=== PATIENT | female | born 1950 | race Hispanic/Latino ===

== ENCOUNTER 2018-01-04 17:02 | Observation (INO) | payer MEDICARE ==
[~2018-01-04] VITALS: Ht 157.5 cm; Wt 83.0 kg
[~2018-01-04 17:02] MED LIST: LOSARTAN POTAS100 MG PO; NEXIUM40 MG PO; NITROFURANTOIN100 MG PO
[2018-01-04 18:00] VITALS: BP 122/62
[2018-01-04] MEDS ORDERED: HYDROCHLOROTH12.5 M1 PO (18:10)
[2018-01-04] MEDS ORDERED: VITAMIN D400 UNIT PO (18:10)
[2018-01-04] MEDS ORDERED: ASPIR 8181 MG PO (18:10)
[2018-01-04] MEDS ORDERED: ACIDOPHILUS1 EAC1 PO (18:10)
[2018-01-04] MEDS ORDERED: MULTI-VITAMIN1 EACH PO (18:10)
[2018-01-04] MEDS ORDERED: NITROGLYCERIN 0.4 MG SUBL SL PRN (18:15)
[2018-01-04] MEDS ORDERED: ACETAMINOPHEN 325 MG TAB PO PRN (18:15)
[2018-01-04] MEDS: ASPIRIN 81 MG ENTERIC COATED PO SCH (18:48)
--- NOTE | 2018-01-04 19:30 | Diagnostic Imaging Report ---
Examination: Single AP view of the chest. COMPARISON: None. INDICATION: Chest pain DISCUSSION: Lines/tubes: None. Lungs: The lungs are well inflated and clear. No pneumonia or pulmonary edema. Pleura: No pleural effusion or pneumothorax. Heart and mediastinum: The heart and the mediastinum are unremarkable. Bones and soft tissues: No acute bony abnormalities. IMPRESSION: 1. No acute cardiopulmonary abnormalities. Signed by: Dr. Irving Monzon M.D. on 01/04/2018 7:26 PM
[2018-01-04 20:00] VITALS: BP_SYST 102; BP_SYST 125; BP_DIAS 44; BP_DIAS 68
[2018-01-04 20:10] LABS: CHOL/HDL RATIO 3.1 (3.0-3.6); CHOLESTEROL 170 MD/DL (0-199); CREATINE KINASE 271 IU/L (29-168); HDL CHOLESTEROL 55 MG/DL (40-60); LDL CHOLESTEROL 88 MG/DL (60-130); TRIGLYCERIDES 134 MG/DL (0-149)
[2018-01-04] MEDS ORDERED: ATORVASTATIN 20 MG TAB PO SCH ×2 (21:00)
[2018-01-05] VITALS: BP 102/44
[2018-01-05] MEDS ORDERED: KETOROLAC TROMETHAMINE 30 MG/ML VIAL IV PRN (01:00)
[2018-01-05 01:41] LABS: CREATINE KINASE 240 IU/L (29-168)
[2018-01-05 04:00] VITALS: BP 120/73
[2018-01-05] MEDS ORDERED: PANTOPRAZOLE SOD 40 MG TABEC PO SCH (07:30)
[2018-01-05 07:44] VITALS: BP 121/63
[2018-01-05] MEDS ORDERED: ASPIRIN 81 MG CHEW TAB PO SCH (09:00)
[2018-01-05] MEDS ORDERED: CHOLECALCIFEROL 400 UNIT TAB PO SCH (09:00)
[2018-01-05] MEDS ORDERED: LOSARTAN POTASSIUM 100 MG TAB PO SCH (09:00)
[2018-01-05] MEDS ORDERED: NON-FORMULARY MEDICATION (Cholecalciferol (Vitamin D3) (Vitamin D) 400 UNITS) PO SCH (09:00)
[2018-01-05] MEDS ORDERED: HYDROCHLOROTHIAZIDE 25 MG TAB PO SCH (09:00)
[2018-01-05] MEDS ORDERED: LACTOBACILLUS ACIDOPHILUS CAPSULE PO SCH (09:00)
[2018-01-05] MEDS ORDERED: MULTIVITAMINS/MINERALS TAB PO SCH (09:00)
[2018-01-05] MEDS: ASPIRIN 81 MG ENTERIC COATED PO SCH (09:04)
[2018-01-05 09:15] LABS: CREATINE KINASE 207 IU/L (29-168)
[2018-01-05 11:23] VITALS: BP 101/54
[2018-01-05 11:40] VITALS: BP 121/63
--- NOTE | 2018-01-05 13:44 | Cardiology Report ---
DATE OF STUDY: January 05, 2018 TITLE OF THIS TEST: Cardiac stress test TECHNICAL DETAILS: The protocol is Tom with target heart rate at 131 per minute. RESULTS 1. Patient exercised for a total of 5 minutes and 7 seconds. 2. Heart rate increased from 65 per minute to 137 per minute. 3. Blood pressure increased from 110/72 to 160/63. 4. No chest pain. 5. No EKG changes. IMPRESSION: Negative cardiac stress test with good exercise tolerance. Limitations of negative cardiac stress test are discussed and explained. Job#: [id number] VAS
--- NOTE | 2018-01-05 13:58 | Consultation ---
DATE OF CONSULTATION: January 05, 2018 CARDIAC CONSULTATION REASON FOR CONSULTATION: Chest pain. HISTORY: A delightful 67-year-old lady with known hypertension and hypercholesterolemia, very active. Before yesterday, she was cleaning her kitchen and she scrubbed it hardly. She started having left shoulder and left upper chest pain. She went to see Dr. Cai, admitted because of her chest pain for further management. Cardiac consultation is obtained. Patient denied having any prior angina. The pain was very severe and that is why she is seeking help. Her cardiac enzymes came back normal. Patient claimed to be active without any cardiac symptoms with the exception of easy fatigability and shortness of breath on exertion. There is no orthopnea. There is no paroxysmal nocturnal dyspnea. There is no syncope or presyncope. REVIEW OF SYSTEMS CARDIAC: As per above. PULMONARY: No cough. No hemoptysis. GI: No hematemesis, no melena. : No hematuria, no dysuria, although patient does have stress incontinence. NEUROMUSCULAR: No aches. No pain. GENERAL: No fever. No chills. HEMATOLOGY: No easy bruising or bleeding. SOCIAL HISTORY: She is . She is nonsmoker, no alcohol drinker. HOME MEDICATIONS: Include aspirin 81 mg a day, losartan hydrochlorothiazide 100/12.5 one tablet a day, atorvastatin 20 mg per day, Protonix 40 mg a day. ALLERGIES: PENICILLIN CAUSING LARYNGEAL EDEMA. PAST MEDICAL HISTORY 1. Hypertension. 2. Hypercholesterolemia. 3. Hysterectomy in 1981. 4. GERD. 5. Cholecystectomy. 6. Diverticulosis. 7. Right and left knee replacement in 2013. FAMILY HISTORY: Father of cancer at age 62. Mother of myocardial infarction at age 76. Three brothers and 3 sisters, 1 sister with heart murmur. She lost a brother to a car accident. No sons and 3 healthy daughters. PHYSICAL EXAM VITAL SIGNS: Height of 5 feet 2 inches, weight of 183 pounds, blood pressure 120/60, heart rate of 60, respiratory rate of 18. HEENT: Pupils are equal, reactive. NECK: No elevation of jugular venous pulsation. No bruit. CHEST: Clear to auscultation and percussion. HEART: PMI 5th left intercostal space. Normal 1st and 2nd heart sounds. ABDOMEN: Soft with good bowel sounds. EXTREMITIES: No cyanosis, no clubbing, no edema. NEUROLOGIC: Nonfocal. LABORATORY DATA: Lipid profile showed triglycerides of 134, total cholesterol of 170, HDL of 55, LDL of 88. CKs are normal. EKG showing normal sinus rhythm. EKG is no acute changes. IMPRESSION 1. Chest pain. 2. Hypertension. 3. Hyperlipidemia. 4. Dyspnea on exertion. 5. Gastroesophageal reflux disease. 6. Stress incontinence. PLAN: Patient had already cardiac enzymes, are negative. So, we will schedule her for stress test. We will review her echocardiogram ordered by Dr. Cai. Pending on the results of this test, further steps to be done. Job#: [id number] ANGEL
[2018-01-05 15:33] VITALS: BP 108/56
--- NOTE | 2018-01-05 18:12 | Discharge Summary ---
A 67-year-old female with a past medical history positive for hypertension, vitamin D deficiency came here transferred from my office because of atypical chest pain. She has had an adenosine Cardiolite stress test that came back negative for ischemia. The patient is going home today. PHYSICAL EXAMINATION HEART: Shows regular rhythm. Normal S1and S2 sounds. LUNGS: Clear bilaterally. ABDOMEN: Soft. EXTREMITIES: Show no evidence of cyanosis or trauma. FINAL IMPRESSION 1. Episode of chest pain. 2. Hypertension. 3. Vitamin D deficiency. She is going to be discharged on: 1. Aspirin 81 mg daily. 2. Lipitor 20 mg daily. 3. Losartan 100 mg daily. 4. Protonix 40 mg daily. 5. Multivitamin 1 tablet daily. 6. Cholecalciferol 400 units daily. Follow up in a week. MIGUEL MONTES MD Job#: [id number] TN
--- NOTE | 2018-01-05 18:17 | History and Physical ---
HISTORY OF PRESENT ILLNESS: Patient is a 67-year-old female, who has past medical history positive for hypertension. Came to the clinic complaining of chest pain. EKG was unremarkable. He had adenosine Cardiolite done by Dr. Sherman, which came back negative. She is going home today. REVIEW OF SYSTEMS CARDIOVASCULAR: She did have chest pain. No palpitations. RESPIRATORY: No shortness of breath. No cough. GASTROINTESTINAL: No nausea, vomiting, diarrhea. GENITOURINARY: No frequency, dysuria. ALLERGIES: SHE IS ALLERGIC TO PENICILLIN. PAST MEDICAL HISTORY: Mainly positive for hypertension. SOCIAL HISTORY: He does not smoke. He does not drink. PHYSICAL EXAM: VITAL SIGNS: Blood pressure 108/56, temperature 97.4, heart rate 71 per minute, respiratory rate 18 per minute, oxygen saturation 100%. FINAL IMPRESSIONS 1. Episode of chest pain. 2. Hypertension. 3. Vitamin D deficiency. 4. Patient had adenosine Cardiolite stress test negative. She is going home today. Job#: [id number] CQ
== END 2018-01-05 18:46 | disposition home or self-care (01) ==
LOC: MED/SURG3 17:02
PROVIDERS: ADMIT Internal Medicine; ATTEND Internal Medicine
DX: R07.89 Other chest pain (principal); I10 Essential (primary) hypertension; E55.9 Vitamin D deficiency, unspecified; Z88.0 Allergy status to penicillin; E78.00 Pure hypercholesterolemia, unspecified; E78.5 Hyperlipidemia, unspecified; K21.9 Gastro-esophageal reflux disease without esophagitis; N39.3 Stress incontinence (female) (male)
CPT/HCPCS: 36415 ×2; 71045; 80061; 82550 ×2; 82553 ×2; 84484 ×2; 93005; 93017; 93306; G0378 ×2

== ENCOUNTER → 2018-02-16 | Outpatient (CLI) | payer MEDICARE ==
[~2018-02-16] MED LIST changes: +ACIDOPHILUS1 EAC1 PO; +ASPIR 8181 MG PO; +HYDROCHLOROTH12.5 M1 PO; +MULTI-VITAMIN1 EACH PO; +VITAMIN D400 UNIT PO
--- NOTE | 2018-02-16 11:48 | Diagnostic Imaging Report ---
EXAM: BONE MINERAL DENSITY HISTORY: Bone mineralization evaluation COMPARISON: None DISCUSSION: Evaluation of the left hip and lumbar spine was performed utilizing DEXA Hologic bone densitometer. The study is technically adequate. Left hip femoral neck bone mineral density: 0.71 g/cm2, T-score is -1.4, Z-score is 0.1. Left hip total bone mineral density: 0.88 g/cm2, T-score is -0.6, Z-score is 0.6. Lumbar spine total bone mineral density: 1.08 gm/cm2, T-score is 0.3, Z-score is 2.1. 10 year fracture risk major osteoporotic fracture 4.5% and hip fracture 0.4%. Impression: Bone mineralization by WHO Classification is low bone mass/osteopenia, the fracture risk is increased. Signed by: Dr. Irving Monzon M.D. on 02/16/2018 11:45 AM
== END ==
LOC: DX 10:22
PROVIDERS: ATTEND Internal Medicine
DX: M89.9 Disorder of bone, unspecified (principal)
CPT/HCPCS: 77080

== ENCOUNTER → 2018-09-08 | Day surgery (SDC) | payer MEDICARE ==
[2018-08-30 15:49] LABS: BASOPHILS % 0.1 % (0.0-1.0); EOSINOPHILS # (AUTO) 0.1 (0.0-0.4); EOSINOPHILS % 1.7 % (0.0-6.0); HEMATOCRIT 36.3 % (34.2-44.1); HEMOGLOBIN 12.3 g/dL (12.0-16.0); LYMPHOCYTES # (AUTO) 2.2 (1.0-3.2); LYMPHOCYTES % 31.5 % (18.0-39.1); MEAN CORPUSCULAR HEMOGLOBIN 29.3 pg (28-32); MEAN CORPUSCULAR HGB CONC 33.9 g/dL (31-35); MEAN CORPUSCULAR VOLUME 86.4 fL (81-99); MONOCYTES # (AUTO) 0.5 (0.2-0.8); MONOCYTES % 7.7 % (4.4-11.3); NEUTROPHILS % 58.7 % (38.7-80.0); PLATELET COUNT 290 x10e3/uL (140-360); RED CELL DISTRIBUTION WIDTH 13.8 % (11.7-14.4)
[~2018-09-08] MED LIST changes: +FENTANYL CITRATE/PF 100MCG/2 ML INJ ONE; +HYOSCYAMINE SULFATE 0.5 MG/ML INJ ONE; +MICARDIS HCT 41 EACH PO; +MIDAZOLAM HCL 2 MG/2 ML VIAL ONE; +PROPOFOL IV EMULSION 10 MG/ML 50 ML VIAL ONE
--- OUTSIDE RECORDS SUMMARY | 2018-09-08 05:44 | XMS REPORT ---
[facility] Address Unknown Phone Unavailable Care Team Providers Care Activities Leader Name Role Phone MIGUEL MONTES Unavailable Unavailable Payers Payer Name Policy Type Policy Number Effective Date Expiration Date Problems This patient has no known problems. Allergies, Adverse Reactions, Alerts Allergy Name Allergy Type Status Severity Reaction(s) Onset Date Inactive Date Treating Clinician Comments Penicillins DA Active SV 2015-02-12 00:00:00 Medications This patient has no known medications. Results Test Description Test Time Test Comments Text Results Atomic Results Result Comments BONE DXA DUAL ENERGY 2018-02-16 11:43:00 [place] [address] Patient Name: NORMA CAMILO MR #: [id number] : 1950 Age/Sex: 67/F Req #: [id number] Adm Physician: Ordered by: MIGUEL MONTES MD Report #: [id number] Location: DX Room/Bed: Procedure: [id number] DX/BONE DXA DUAL ENERGY Exam Date: Exam Time: REPORT STATUS: Signed EXAM: BONE MINERAL DENSITY HISTORY: Bone mineralization evaluation COMPARISON: None DISCUSSION: Evaluation of the left hip and lumbar spine was performed utilizing DEXA Hologic bone densitometer. The study is technically adequate. Left hip femoral neck bone mineral density: 0.71 g/cm2, T-score is -1.4, Z-score is 0.1. Left hip total bone mineral density: 0.88 g/cm2, T-score is -0.6, Z-score is 0.6. Lumbar spine total bone mineral density: 1.08 gm/cm2, T-score is 0.3, Z-score is 2.1. 10 year fracture risk major osteoporotic fracture 4.5% and hip fracture 0.4%. Impression: Bone mineralization by WHO Classification is low bone mass/osteopenia, the fracture risk is increased. Signed by: Dr. George Knox M.D. on 02/16/2018 11:45 AM Dictated By: GEORGE KNOX MD 1145 Transcribed By: MADELINE on 02/16/18 1145 COPY TO: MIGUEL MONTES MD Stress Test - Treadmill ONLY 2018-01-05 12:15:00 [place] [address] Patient Name : NORMA CAMILO MR #: [id number] : 1950 Age/Sex: 67/F Adm Physician : MIGUEL MONTES MD Admit Date : 01/04/18 Location : [facility] Room/Bed : [facility] REPORT: Cardiology Report DATE OF STUDY: January 05, 2018 TITLE OF THIS TEST: Cardiac stress test TECHNICAL DETAILS: The protocol is Tom with target heart rate at 131 per minute. RESULTS 1. Patient exercised for a total of 5 minutes and 7 seconds. 2. Heart rate increased from 65 per minute to 137 per minute. 3. Blood pressure increased from 110/72 to 160/63. 4. No chest pain. 5. No EKG changes. IMPRESSION: Negative cardiac stress test with good exercise tolerance. Limitations of negative cardiac stress test are discussed and explained. Job#: [id number] VAS Signature Date Dictated By: ABEL BENTLEY MD Transcribed By: EDS on 01/05/18 <Electronically signed by ABEL BENTLEY MD><<Signature on File>>01/08/18 1221 COPY TO: CHEST SINGLE (PORTABLE) 2018-01-04 19:26:00 [place] [address] Patient Name: NORMA CAMILO MR #: [id number] : 1950 Age/Sex: 67/F Req #: [id number] Adm Physician: MIGUEL MONTES MD Ordered by: MIGUEL MONTES MD Report #: [id number] Location: [facility] Room/Bed: [facility] Procedure: [id number] DX/CHEST SINGLE (PORTABLE) Exam Date: 01/04/18 Exam Time: 1909 REPORT STATUS: Signed Examination: Single AP view of the chest. COMPARISON: None. INDICATION: Chest pain DISCUSSION: Lines/tubes: None. Lungs: The lungs are well inflated and clear. No pneumonia or pulmonary edema. Pleura: No pleural effusion or pneumothorax. Heart and mediastinum: The heart and the mediastinum are unremarkable. Bones and soft tissues: No acute bony abnormalities. IMPRESSION: 1. No acute cardiopulmonary abnormalities. Signed by: Dr. George Knox M.D. on 01/04/2018 7:26 PM Dictated By: GEORGE KNOX MD 25 Transcribed By: MADELINE on 01/04/181925 COPY TO: MIGUEL MONTES MD
[2018-09-08 10:05] VITALS: BP 98/60
--- NOTE | 2018-09-08 11:26 | Operative Report ---
DATE OF PROCEDURE: 09/08/2018 SURGEON: Wander Kramer MD PROCEDURE: Colonoscopy and polypectomy. INDICATIONS FOR COLONOSCOPY: Surveillance colonoscopy, personal history of colon polyps. MEDICATIONS: The patient was done under MAC, please see anesthesiologist's note. PROCEDURE IN DETAIL: With the patient in left lateral decubitus position, flexible fiberoptic Olympus colonoscope was inserted into the rectum with ease and advanced all the way to the cecum. Mucosa overlying the cecum appeared to be within normal limits. One polyp was removed per cold biopsy forceps from the ascending colon. The transverse and descending appeared to be within normal limits. Diverticular disease was noted in the distal descending and the sigmoid, one polyp was snared from the sigmoid colon. The rectum appeared to be within normal limits. The scope was then retroflexed into the distal rectum where small internal hemorrhoids were noted, none of which was actively bleeding. The scope was then straightened out, it was subsequently withdrawn. The patient tolerated procedure well. IMPRESSION: 1. Ascending colon polyp, removed per cold biopsy forceps. 2. Diverticulosis. 3. Sigmoid colon polyp, removed per snare electrocautery. 4. Internal hemorrhoids, none actively bleeding. PLAN: Follow up histology. Initiate high-fiber, low-fat diet. Initiate high-fiber supplement. The patient might benefit from a followup colonoscopy in 5 years. Wander Kramer MD [facility] [place] /[id number] cc: Juan Cai MD
== END | disposition home or self-care (01) ==
LOC: OR 05:42
PROVIDERS: ATTEND Internal Medicine Gastroenterology
DX: Z09 Encounter for follow-up examination after completed treatment for conditions other than malignant neoplasm (principal); K63.5 Polyp of colon; K57.30 Diverticulosis of large intestine without perforation or abscess without bleeding; K64.8 Other hemorrhoids; K21.0 Gastro-esophageal reflux disease with esophagitis; I10 Essential (primary) hypertension; M13.852 Other specified arthritis, left hip; Z88.0 Allergy status to penicillin; Z01.810 Encounter for preprocedural cardiovascular examination; Z01.812 Encounter for preprocedural laboratory examination; Z79.82 Long term (current) use of aspirin; Z68.31 Body mass index [BMI] 31.0-31.9, adult; Z85.42 Personal history of malignant neoplasm of other parts of uterus; Z92.21 Personal history of antineoplastic chemotherapy
CPT/HCPCS: 36415; 45380; 45385; 85025; 88305; 93005; J1980; J2250; J2704; 45378; 45384

== ENCOUNTER → 2020-01-09 | Day surgery (SDC) | payer OTHER ==
[2020-01-04 11:54] LABS: BASOPHILS % 0.2 % (0.0-1.0); EOSINOPHILS # (AUTO) 0.1 (0.0-0.4); EOSINOPHILS % 1.6 % (0.0-6.0); HEMATOCRIT 36.7 % (34.2-44.1); HEMOGLOBIN 12.3 g/dL (12.0-16.0); LYMPHOCYTES # (AUTO) 2.1 (1.0-3.2); LYMPHOCYTES % 33.6 % (18.0-39.1); MEAN CORPUSCULAR HEMOGLOBIN 29.6 pg (28-32); MEAN CORPUSCULAR HGB CONC 33.5 g/dL (31-35); MEAN CORPUSCULAR VOLUME 88.4 fL (81-99); MONOCYTES # (AUTO) 0.5 (0.2-0.8); MONOCYTES % 8.2 % (4.4-11.3); NEUTROPHILS # (AUTO) 3.4 (2.1-6.9); NEUTROPHILS % 55.9 % (38.7-80.0); PLATELET COUNT 259 x10e3/uL (140-360); RED BLOOD COUNT 4.15 x10e6/uL (3.6-5.1); RED CELL DISTRIBUTION WIDTH 13.2 % (11.7-14.4)
[~2020-01-09] MED LIST changes: -HYOSCYAMINE SULFATE 0.5 MG/ML INJ ONE; +PANTOPRAZOLE 40 MG 10ML VIAL ONE; +PEPCID20 MG PO; +PROPOFOL IV EMULSION 10 MG/ML 20 ML VIAL ONE; -PROPOFOL IV EMULSION 10 MG/ML 50 ML VIAL ONE
[2020-01-09 13:00] VITALS: BP 107/57
--- NOTE | 2020-01-09 14:29 | Operative Report ---
DATE OF PROCEDURE: 01/09/2020 SURGEON: Wander Kramer MD PROCEDURE: EGD with biopsies. INDICATIONS FOR EGD: Acid reflux, heartburn, bloating. MEDICATIONS: The patient was done under MAC, please see anesthesiologist's note. PROCEDURE IN DETAIL: With the patient in left lateral decubitus position, a flexible fiberoptic Olympus gastroscope was introduced into the esophagus under direct visualization without any difficulty. There was some patchy erythema noted in distal esophagus. The scope was then advanced with ease into the stomach, traversing a small sliding hiatal hernia. Mucosa overlying the antrum and the body revealed some patchy erythema and [id number] edema; biopsies were obtained, sent to stain for H. pylori. Some prominent patchy nodularity was noted in the midbody of the stomach as well as in the fundus, some biopsies were obtained. Pylorus was of normal contour and shape, it was intubated with ease and the scope was advanced all the way to the second portion of the duodenum. Biopsies were obtained from the proximal second portion and the duodenal bulb to rule out sprue. The scope was then withdrawn back into the stomach and retroflexed, and mucosa overlying the fundus and cardia appeared to be within normal limits. The scope was then straightened out, it was subsequently withdrawn. The patient tolerated the procedure well. IMPRESSION: 1. Distal esophagitis, mild. 2. Small sliding hiatal hernia. 3. Gastritis, biopsied, biopsies sent to stain for H. pylori. 4. Patchy nodularity in midbody of the fundus, biopsied. 5. Rule out sprue. PLAN: 1. Follow up histology. 2. Continue Nexium 40 mg one p.o. a.c. b.i.d., Pepcid 40 mg one p.o. at bedtime. Wander Kramer MD [facility] [place][id number] cc: Juan Cai MD
== END | disposition home or self-care (01) ==
LOC: OR 10:03
PROVIDERS: ATTEND Internal Medicine Gastroenterology
DX: K29.50 Unspecified chronic gastritis without bleeding (principal); K31.7 Polyp of stomach and duodenum; K31.89 Other diseases of stomach and duodenum; K21.9 Gastro-esophageal reflux disease without esophagitis; K44.9 Diaphragmatic hernia without obstruction or gangrene; K20.90 Esophagitis, unspecified without bleeding; Z86.010 Personal history of colon polyps; I10 Essential (primary) hypertension; E78.5 Hyperlipidemia, unspecified; I49.3 Ventricular premature depolarization; Z88.0 Allergy status to penicillin; Z01.810 Encounter for preprocedural cardiovascular examination; Z01.812 Encounter for preprocedural laboratory examination; Z11.59 Encounter for screening for other viral diseases; Z79.82 Long term (current) use of aspirin; Z85.42 Personal history of malignant neoplasm of other parts of uterus; Z68.32 Body mass index [BMI] 32.0-32.9, adult; Z92.3 Personal history of irradiation
CPT/HCPCS: 36415; 43239; 85025; 93005; C9113; J2250; J2704; J3010; U0002

== ENCOUNTER 2020-06-12 14:25 | Emergency (ER) | payer MEDICARE ==
[~2020-06-12] VITALS: Ht 157.5 cm; Wt 83.0 kg
[~2020-06-12 14:25] MED LIST changes: -FENTANYL CITRATE/PF 100MCG/2 ML INJ ONE; -MIDAZOLAM HCL 2 MG/2 ML VIAL ONE; -PANTOPRAZOLE 40 MG 10ML VIAL ONE; -PROPOFOL IV EMULSION 10 MG/ML 20 ML VIAL ONE
[2020-06-12 16:35] LABS: BASOPHILS % 0.2 % (0.0-1.0); EOSINOPHILS # (AUTO) 0.1 (0.0-0.4); EOSINOPHILS % 1.9 % (0.0-6.0); HEMATOCRIT 36.5 % (34.2-44.1); LYMPHOCYTES # (AUTO) 1.9 (1.0-3.2); LYMPHOCYTES % 32.5 % (18.0-39.1); MEAN CORPUSCULAR HEMOGLOBIN 28.8 pg (28-32); MEAN CORPUSCULAR HGB CONC 32.9 g/dL (31-35); MEAN CORPUSCULAR VOLUME 87.5 fL (81-99); MONOCYTES # (AUTO) 0.7 (0.2-0.8); MONOCYTES % 11.2 % (4.4-11.3); NEUTROPHILS # (AUTO) 3.2 (2.1-6.9); NEUTROPHILS % 53.9 % (38.7-80.0); PLATELET COUNT 275 x10e3/uL (140-360); RED BLOOD COUNT 4.17 x10e6/uL (3.6-5.1); RED CELL DISTRIBUTION WIDTH 13.5 % (11.7-14.4)
[2020-06-12 16:46] LABS: INR 0.89; PROTHROMBIN TIME 12.6 seconds (11.9-14.5)
[2020-06-12 16:47] LABS: PARTIAL THROMBOPLASTIN TIME 36.2 seconds (23.8-35.5)
[2020-06-12 16:52] LABS: ALANINE AMINOTRANSFERASE 23 IU/L (0-55); ALBUMIN 4.2 g/dL (3.5-5.0); ALBUMIN/GLOBULIN RATIO 1.4 (0.8-2.0); ALKALINE PHOSPHATASE 93 IU/L (40-150); ANION GAP 11.9 mmol/L (8-16); BLOOD UREA NITROGEN 14 mg/dL (7-26); BUN/CREATININE RATIO 20 (6-25); CALCIUM 8.8 mg/dL (8.4-10.2); CARBON DIOXIDE 29 mmol/L (22-29); CHLORIDE 102 mmol/L (98-107); CREATININE, SERUM 0.69 mg/dL (0.57-1.11); EST GLOMERULAR FILTRATION RATE > 60 ML/MIN (60-); GLUCOSE 94 mg/dL (74-118); POTASSIUM 3.9 mmol/L (3.5-5.1); SODIUM 139 mmol/L (136-145)
== END 2020-06-12 19:10 | disposition other institution (70) ==
LOC: ER 14:52
DX: S06.5X0A Traumatic subdural hemorrhage without loss of consciousness, initial encounter (principal); S01.01XA Laceration without foreign body of scalp, initial encounter; W01.198A Fall on same level from slipping, tripping and stumbling with subsequent striking against other object, initial encounter; Y93.01 Activity, walking, marching and hiking; Y92.008 Other place in unspecified non-institutional (private) residence as the place of occurrence of the external cause; Z20.822 Contact with and (suspected) exposure to COVID-19
CPT/HCPCS: 12001; 36415; 70450; 72125; 80053; 85025; 85610; 85730; 99284; U0002

== ENCOUNTER 2020-10-27 20:10 | Emergency (ER) | payer MEDICARE ==
[~2020-10-27] VITALS: Ht 157.5 cm; Wt 74.8 kg
[2020-10-27 20:33] LABS: BASOPHILS % 0.3 % (0.0-1.0); EOSINOPHILS # (AUTO) 0.1 (0.0-0.4); EOSINOPHILS % 1.4 % (0.0-6.0); HEMOGLOBIN 12.8 g/dL (12.0-16.0); LYMPHOCYTES # (AUTO) 2.6 (1.0-3.2); LYMPHOCYTES % 42.3 % (18.0-39.1); MEAN CORPUSCULAR HGB CONC 32.8 g/dL (31-35); MEAN CORPUSCULAR VOLUME 88.2 fL (81-99); MONOCYTES # (AUTO) 0.5 (0.2-0.8); MONOCYTES % 7.2 % (4.4-11.3); NEUTROPHILS % 48.5 % (38.7-80.0); PLATELET COUNT 276 x10e3/uL (140-360); RED BLOOD COUNT 4.42 x10e6/uL (3.6-5.1); RED CELL DISTRIBUTION WIDTH 13.7 % (11.7-14.4)
[2020-10-27 21:07] LABS: INR 0.87; PARTIAL THROMBOPLASTIN TIME 35.2 seconds (23.8-35.5)
[2020-10-27 21:16] LABS: ALBUMIN 4.2 g/dL (3.5-5.0); ALBUMIN/GLOBULIN RATIO 1.4 (0.8-2.0); ANION GAP 14.5 mmol/L (8-16); CALCIUM 8.9 mg/dL (8.4-10.2); CREATININE, SERUM 0.82 mg/dL (0.57-1.11); POTASSIUM 3.5 mmol/L (3.5-5.1)
[2020-10-27] MEDS ORDERED: IOPAMIDOL 370 MG/ML 200 ML INFUS..BTL INJ ONE (21:43)
[2020-10-27] MEDS ORDERED: SODIUM CHLORIDE 0.9% 50ML 50 ML ONE (21:44)
[2020-10-27 23:13] VITALS: BP 112/56
== END 2020-10-27 23:10 | disposition home or self-care (01) ==
LOC: ER 20:16
DX: R04.2 Hemoptysis (principal); I10 Essential (primary) hypertension; K21.9 Gastro-esophageal reflux disease without esophagitis
CPT/HCPCS: 36415; 70491; 71260; 80053; 85025; 85610; 85730; 99283; Q9967

== ENCOUNTER → 2020-11-12 | Outpatient (CLI) | payer MEDICARE | LOC: US 14:37 | PROVIDERS: ATTEND Internal Medicine | DX: I71.4 Abdominal aortic aneurysm, without rupture (principal); E04.1 Nontoxic single thyroid nodule | CPT/HCPCS: 76536; 76700 ==

== ENCOUNTER 2024-06-30 04:23 | Inpatient (IN) | payer MEDICARE ==
[2024-06-30] VITALS (7 sets, daily range): BP systolic 103–118; BP diastolic 47–73; PULSE 68–85; RESP 14–18; TEMP 97.5–99.4; O2SAT 97–100
[~2024-06-30] VITALS: Ht 157.5 cm; Wt 77.1 kg
[2024-06-30] MEDS: ONDANSETRON HCL INJ 2MG/ML 2ML 2 MG/ML VIAL IV STA (04:49)
[2024-06-30] MEDS: SODIUM CHLORIDE 0.9% 1000ML 1,000 ML IV STA (04:49)
[2024-06-30] MEDS: Morphine 4mg INJECTION 4 MG/ML INJ IV STA (04:50)
[2024-06-30 04:55] LABS: BASOPHILS % 0.2 % (0.0-1.0); EOSINOPHILS # (AUTO) 0.2 (0.0-0.4); EOSINOPHILS % 1.7 % (0.0-6.0); HEMATOCRIT 37.3 % (34.2-44.1); HEMOGLOBIN 12.8 g/dL (12.0-16.0); LYMPHOCYTES # (AUTO) 2.3 (1.0-3.2); LYMPHOCYTES % 20.8 % (18.0-39.1); MEAN CORPUSCULAR HEMOGLOBIN 29.8 pg (28-32); MEAN CORPUSCULAR HGB CONC 34.3 g/dL (31-35); MEAN CORPUSCULAR VOLUME 86.9 fL (81-99); MONOCYTES # (AUTO) 0.8 (0.2-0.8); MONOCYTES % 7.1 % (4.4-11.3); NEUTROPHILS # (AUTO) 7.7 (2.1-6.9); NEUTROPHILS % 69.8 % (38.7-80.0); PLATELET COUNT 240 x10e3/uL (140-360); RED BLOOD COUNT 4.29 x10e6/uL (3.6-5.1); RED CELL DISTRIBUTION WIDTH 13.4 % (11.7-14.4); WHITE BLOOD COUNT 10.96 x10e3/uL (4.8-10.8)
[2024-06-30 05:12] LABS: CLARITY,URINE CLEAR (CLEAR); COLOR,URINE YELLOW (YELLOW); GLUCOSE, URINE NEGATIVE (NEGATIVE); LEUKOCYTE ESTERASE ,URINE NEGATIVE (NEGATIVE); NITRITE,URINE NEGATIVE (NEGATIVE); PH,URINE 6.5 (5 - 7); PROTEIN,URINE DIPSTICK NEGATIVE (NEGATIVE)
[2024-06-30 05:13] LABS: BILIRUBIN,URINE NEGATIVE (NEGATIVE); KETONES,URINE NEGATIVE (NEGATIVE); URINE UROBILINOGEN 0.2 mg/dL (0.2 - 1)
[2024-06-30 05:24] LABS: BACTERIA,URINE FEW /HPF; EPITHELIAL CELLS,URINE FEW /LPF; RBC,URINE 0-5 /HPF (0-5); WBC,URINE (MAN) 0-5 /HPF (0-5)
[2024-06-30 05:27] LABS: ALBUMIN 3.6 g/dL (3.5-5.0); ALBUMIN/GLOBULIN RATIO 1.2 (0.8-2.0); ANION GAP 14.4 mmol/L (8-16); BILIRUBIN,TOTAL 1.1 mg/dL (0.2-1.2); CALCIUM 8.9 mg/dL (8.4-10.2); CREATININE, SERUM 0.78 mg/dL (0.57-1.11); TOTAL PROTEIN 6.7 g/dL (6.5-8.1)
[2024-06-30] MEDS ORDERED: IOPAMIDOL 370 MG/ML 100 ML INFUS..BTL INJ ONE (05:27)
[2024-06-30 05:28] LABS: POTASSIUM 3.4 mmol/L (3.5-5.1)
[2024-06-30] MEDS ORDERED: ONDANSETRON HCL INJ 2MG/ML 2ML 2 MG/ML VIAL IV PRN (07:45)
[2024-06-30] MEDS: METRONIDAZOLE 500MG/NS 100ML 100 ML IV SCH (10:14)
[2024-06-30] MEDS: SODIUM CHLORIDE 0.9% 1000ML 1,000 ML IV SCH (10:14)
[2024-06-30] MEDS: KETOROLAC TROMETHAMINE 30 MG/ML VIAL IV STA (10:17)
[2024-06-30 10:29] LABS: BASOPHILS % 0.2 % (0.0-1.0); EOSINOPHILS # (AUTO) 0.1 (0.0-0.4); EOSINOPHILS % 1.1 % (0.0-6.0); HEMATOCRIT 36.6 % (34.2-44.1); HEMOGLOBIN 12.4 g/dL (12.0-16.0); LYMPHOCYTES # (AUTO) 1.7 (1.0-3.2); LYMPHOCYTES % 12.9 % (18.0-39.1); MEAN CORPUSCULAR HEMOGLOBIN 29.7 pg (28-32); MEAN CORPUSCULAR HGB CONC 33.9 g/dL (31-35); MEAN CORPUSCULAR VOLUME 87.8 fL (81-99); MONOCYTES % 7.7 % (4.4-11.3); NEUTROPHILS # (AUTO) 10.1 (2.1-6.9); NEUTROPHILS % 77.7 % (38.7-80.0); PLATELET COUNT 206 x10e3/uL (140-360); RED BLOOD COUNT 4.17 x10e6/uL (3.6-5.1); RED CELL DISTRIBUTION WIDTH 13.6 % (11.7-14.4); WHITE BLOOD COUNT 13.06 x10e3/uL (4.8-10.8)
[2024-06-30] MEDS: Morphine 4mg INJECTION 4 MG/ML INJ IV PRN (19:47)
[2024-07-01] VITALS (9 sets, daily range): BP systolic 99–124; BP diastolic 45–53; PULSE 71–78; RESP 18; TEMP 97.7–99.5; O2SAT 98–100
[2024-07-01 06:31] LABS: BASOPHILS % 0.2 % (0.0-1.0); EOSINOPHILS # (AUTO) 0.1 (0.0-0.4); EOSINOPHILS % 0.5 % (0.0-6.0); HEMOGLOBIN 11.3 g/dL (12.0-16.0); LYMPHOCYTES # (AUTO) 1.3 (1.0-3.2); LYMPHOCYTES % 10.2 % (18.0-39.1); MEAN CORPUSCULAR HEMOGLOBIN 30.1 pg (28-32); MEAN CORPUSCULAR HGB CONC 33.2 g/dL (31-35); MEAN CORPUSCULAR VOLUME 90.4 fL (81-99); MONOCYTES # (AUTO) 0.9 (0.2-0.8); MONOCYTES % 6.7 % (4.4-11.3); NEUTROPHILS # (AUTO) 10.8 (2.1-6.9); PLATELET COUNT 205 x10e3/uL (140-360); RED BLOOD COUNT 3.76 x10e6/uL (3.6-5.1); RED CELL DISTRIBUTION WIDTH 13.7 % (11.7-14.4); WHITE BLOOD COUNT 13.15 x10e3/uL (4.8-10.8)
[2024-07-01 06:53] LABS: ALBUMIN 2.8 g/dL (3.5-5.0); ANION GAP 13.6 mmol/L (8-16); BILIRUBIN,TOTAL 0.9 mg/dL (0.2-1.2); CALCIUM 8.2 mg/dL (8.4-10.2); CREATININE, SERUM 0.68 mg/dL (0.57-1.11); POTASSIUM 3.6 mmol/L (3.5-5.1); TOTAL PROTEIN 5.5 g/dL (6.5-8.1)
[2024-07-01] MEDS ORDERED: ACETAMINOPHEN 1000 MG/100 ML IV PRN (18:30)
[2024-07-01] MEDS ORDERED: ENOXAPARIN SOD INJ 40 MG/0.4 ML SYR SC SCH (18:30)
[2024-07-01] MEDS ORDERED: KETOROLAC TROMETHAMINE 30 MG/ML VIAL IV PRN (18:30)
[2024-07-01] MEDS: ENOXAPARIN SOD INJ 40 MG/0.4 ML SYR SC SCH (20:57)
[2024-07-02] VITALS (7 sets, daily range): BP systolic 106–125; BP diastolic 41–57; PULSE 68–106; RESP 18; TEMP 97.9–99.2; O2SAT 96–100
[2024-07-02 06:12] LABS: BASOPHILS % 0.3 % (0.0-1.0); EOSINOPHILS # (AUTO) 0.2 (0.0-0.4); EOSINOPHILS % 2.6 % (0.0-6.0); HEMATOCRIT 30.7 % (34.2-44.1); HEMOGLOBIN 10.4 g/dL (12.0-16.0); LYMPHOCYTES # (AUTO) 1.3 (1.0-3.2); LYMPHOCYTES % 18.5 % (18.0-39.1); MEAN CORPUSCULAR HEMOGLOBIN 29.9 pg (28-32); MEAN CORPUSCULAR HGB CONC 33.9 g/dL (31-35); MEAN CORPUSCULAR VOLUME 88.2 fL (81-99); MONOCYTES # (AUTO) 0.6 (0.2-0.8); MONOCYTES % 7.7 % (4.4-11.3); NEUTROPHILS # (AUTO) 5.1 (2.1-6.9); NEUTROPHILS % 70.6 % (38.7-80.0); PLATELET COUNT 186 x10e3/uL (140-360); RED BLOOD COUNT 3.48 x10e6/uL (3.6-5.1); RED CELL DISTRIBUTION WIDTH 13.4 % (11.7-14.4); WHITE BLOOD COUNT 7.23 x10e3/uL (4.8-10.8)
[2024-07-02 07:28] LABS: ALBUMIN 2.6 g/dL (3.5-5.0); ANION GAP 14.2 mmol/L (8-16); BILIRUBIN,TOTAL 0.5 mg/dL (0.2-1.2); CALCIUM 7.9 mg/dL (8.4-10.2); CREATININE, SERUM 0.63 mg/dL (0.57-1.11); TOTAL PROTEIN 5.1 g/dL (6.5-8.1)
[2024-07-02 07:35] LABS: POTASSIUM 3.2 mmol/L (3.5-5.1)
[2024-07-03] VITALS (9 sets, daily range): BP systolic 110–125; BP diastolic 50–71; PULSE 63–73; RESP 16–18; TEMP 97.9–98.4; O2SAT 99–100
[2024-07-03] MEDS: DIPHENHYDRAMINE HCL INJ 50 MG/ML VIAL IV PRN (09:49)
[2024-07-03] MEDS ORDERED: IOPAMIDOL 370 MG/ML 100 ML INFUS..BTL INJ ONE (10:41)
[2024-07-04 03:34] VITALS: BP 125/62; PULSE 70; RESP 18; TEMP 98.6; O2SAT 99
[2024-07-04 08:33] LABS: BASOPHILS % 0.3 % (0.0-1.0); EOSINOPHILS # (AUTO) 0.3 (0.0-0.4); EOSINOPHILS % 6.8 % (0.0-6.0); HEMATOCRIT 32.4 % (34.2-44.1); HEMOGLOBIN 10.8 g/dL (12.0-16.0); LYMPHOCYTES # (AUTO) 1.1 (1.0-3.2); LYMPHOCYTES % 27.3 % (18.0-39.1); MEAN CORPUSCULAR HEMOGLOBIN 29.7 pg (28-32); MEAN CORPUSCULAR HGB CONC 33.3 g/dL (31-35); MONOCYTES # (AUTO) 0.4 (0.2-0.8); MONOCYTES % 10.5 % (4.4-11.3); NEUTROPHILS # (AUTO) 2.2 (2.1-6.9); NEUTROPHILS % 54.8 % (38.7-80.0); PLATELET COUNT 215 x10e3/uL (140-360); RED BLOOD COUNT 3.64 x10e6/uL (3.6-5.1); RED CELL DISTRIBUTION WIDTH 13.2 % (11.7-14.4); WHITE BLOOD COUNT 3.99 x10e3/uL (4.8-10.8)
[2024-07-04 08:56] LABS: ANION GAP 10.8 mmol/L (8-16); CALCIUM 8.1 mg/dL (8.4-10.2); CREATININE, SERUM 0.63 mg/dL (0.57-1.11)
[2024-07-04 09:00] VITALS: BP 128/69; PULSE 76; RESP 19; TEMP 98; O2SAT 96
[2024-07-04 09:07] VITALS: BP 125/62; PULSE 70; RESP 18; TEMP 98.6; O2SAT 99
[2024-07-04 09:11] LABS: POTASSIUM 2.8 mmol/L (3.5-5.1)
[2024-07-04 11:48] VITALS: BP 122/55; PULSE 70; RESP 19; TEMP 98; O2SAT 100
[2024-07-04] MEDS: POTASSIUM CHLORIDE 20MEQ/100ML 100 ML IV SCH (14:44)
[2024-07-04] MEDS: CEFTRIAXONE 2 GM in SODIUM CHLORIDE 0.9% 100 ML IV SCH (17:01)
[2024-07-04 20:00] VITALS: BP 111/58; PULSE 74; RESP 18; TEMP 98.1; O2SAT 100
[2024-07-04 21:36] VITALS: BP 111/58; PULSE 74; RESP 18; TEMP 98.1; O2SAT 100
[2024-07-05] VITALS (7 sets, daily range): BP systolic 112–121; BP diastolic 53–61; PULSE 68–79; RESP 16–18; TEMP 98.2–98.9; O2SAT 100
[2024-07-05 05:25] LABS: BASOPHILS % 0.2 % (0.0-1.0); EOSINOPHILS # (AUTO) 0.3 (0.0-0.4); EOSINOPHILS % 8.3 % (0.0-6.0); HEMATOCRIT 29.6 % (34.2-44.1); HEMOGLOBIN 9.9 g/dL (12.0-16.0); LYMPHOCYTES # (AUTO) 1.2 (1.0-3.2); LYMPHOCYTES % 28.7 % (18.0-39.1); MEAN CORPUSCULAR HEMOGLOBIN 29.6 pg (28-32); MEAN CORPUSCULAR HGB CONC 33.4 g/dL (31-35); MEAN CORPUSCULAR VOLUME 88.6 fL (81-99); MONOCYTES # (AUTO) 0.5 (0.2-0.8); MONOCYTES % 12.4 % (4.4-11.3); NEUTROPHILS # (AUTO) 2.1 (2.1-6.9); NEUTROPHILS % 49.9 % (38.7-80.0); PLATELET COUNT 202 x10e3/uL (140-360); RED BLOOD COUNT 3.34 x10e6/uL (3.6-5.1); RED CELL DISTRIBUTION WIDTH 13.2 % (11.7-14.4); WHITE BLOOD COUNT 4.11 x10e3/uL (4.8-10.8)
[2024-07-05 05:49] LABS: ANION GAP 11.2 mmol/L (8-16); CREATININE, SERUM 0.58 mg/dL (0.57-1.11)
[2024-07-05 05:50] LABS: POTASSIUM 3.2 mmol/L (3.5-5.1)
[2024-07-05] MEDS: DIPHENHYDRAMINE HCL 25 MG CAP PO ONE (16:08)
== END 2024-07-05 17:30 | disposition home or self-care (01) | DRG 391 ==
LOC: ER 04:26 → ERHOLD 07:52 → MED/SURG2 09:52
PROVIDERS: ADMIT Internal Medicine; ATTEND Internal Medicine
DX: K57.20 Diverticulitis of large intestine with perforation and abscess without bleeding (principal); K65.0 Generalized (acute) peritonitis; K65.1 Peritoneal abscess; N32.1 Vesicointestinal fistula; E87.1 Hypo-osmolality and hyponatremia; I10 Essential (primary) hypertension; N30.90 Cystitis, unspecified without hematuria; K21.9 Gastro-esophageal reflux disease without esophagitis; M81.0 Age-related osteoporosis without current pathological fracture; M19.90 Unspecified osteoarthritis, unspecified site; R73.03 Prediabetes; L27.0 Generalized skin eruption due to drugs and medicaments taken internally; T36.1X5A Adverse effect of cephalosporins and other beta-lactam antibiotics, initial encounter; Z79.82 Long term (current) use of aspirin; Z90.49 Acquired absence of other specified parts of digestive tract; Z90.710 Acquired absence of both cervix and uterus; Z88.0 Allergy status to penicillin
CPT/HCPCS: 36415; 74177; 80048; 80053; 81001; 83690; 85025; 99285; J0692; J0696; J1200; J1650; J1885; J2270; J2405; J2470; J3480; J7030; J7050; Q9967